=== PATIENT | male | born 1980 | race Hispanic/Latino ===

== ENCOUNTER 2018-03-03 07:39 | Emergency (ER) | payer OTHER ==
[~2018-03-03] VITALS: Ht 165.1 cm; Wt 81.6 kg
[2018-03-03 07:47] VITALS: BP 132/87
--- NOTE | 2018-03-03 08:21 | ED THROAT/DENTAL COMPLAINT ---
History of Present Illness General Chief Complaint: General Adult Stated Complaint: "BUMP INSIDE TOP LIP/ROOF OF MY MOUTH" Source: patient Exam Limitations: no limitations Vital Signs & Intake/Output Vital Signs & Intake/Output Vital Signs Date Time Temp Pulse Resp B/P B/P Pulse O2 O2 Flow FiO2 Mean Ox Delivery Rate 03/03 0747 96.6 80 16 132/87 98 Room Air Allergies Coded Allergies: No Known Allergies (03/03/18) Reconcile Medications Amoxicillin/Clavulanate Potass (Amox-Clav 875-125 MG Tablet) 875 MG-125 MG TABLET 1 TAB PO BID ANTIBIOTIC, INFECTION (Reported) Hydrocodone/Acetaminophen (G[place]t 5-325 Tablet) 5 MG-325 MG TABLET 1-2 TAB PO Q4-6 PRN PRN PAIN Lactobacillus Acidophilus (Probiotic) 10 BILLION CELL CAPSULE 1 CAP PO DAILY GI (Reported) Lidocaine HCl (Lidocaine HCl Viscous) 2 % SOLUTION 15 ML PO 4 TIMES/DAY PRN DENTAL PAIN Triage Note: PT SEEN AT WALK IN CLINIC YESTERDAY AND PRESCRIBED AMOXCILLIN FOR ABCESS TO ROOF OF MOUTH AND UPPER LIP. TOLD TO COME TO ED IF PAIN WORSENED. ARRIVES TO ED FOR INCREASED PAIN/SWELLING TO ABCESS ON UPPER LIP. TOOK DOSE OF AMOXICILLIN THIS AM. AWAKE/ALERT WITH EASY WOB. DENIES DRAINAGE FROM EITHER ABCESS. Triage Nurses Notes Reviewed? yes Onset: Gradual Duration: day(s): (2) Timing: no prior history Injury Environment: home Severity: moderate Severity Numbers: 6 Modifying Factors: Worsens With: movement. HPI: Patient is a 38-year-old male with no past medical history presenting to the emergency department with chief complaint of upper gum and upper lip since yesterday. He was seen at a walk-in clinic and diagnosed with a gum abscess. Who started on Augmentin yesterday evening, patient has taken a total of 3 doses including this morning. Reports that the pain is not controlled with Motrin. He does report that the abscess has increased in size since yesterday as well. No fevers or chills. Otherwise feeling fine. No history of diabetes. Denies any trauma. Past History Travel History Traveled to [place] past 21 day No Medical History Any Pertinent Medical History? see below for history Neurological: NONE EENT: NONE Cardiovascular: NONE Respiratory: NONE Gastrointestinal: NONE Hepatic: NONE Renal: NONE Musculoskeletal: NONE Psychiatric: NONE Endocrine: NONE Surgical History Surgical History: non-contributory Psychosocial History What is your primary language Syriac Tobacco Use: Current Daily Use Daily Tobacco Use Amount/Type: => 5 Cigarettes daily Illicit Drug Use: denies illicit drug use Family History Hx Contributory? No Review of Systems Review of Systems Constitutional: Reports: no symptoms. Comments Review of systems: See HPI, All other systems negative. Constitutional, no chills fever or weight loss HEENT: No visual changes no sore throat no congestion Cardiovascular: No chest pain ,palpitation , orthopnea or ankle swelling Skin, no jaundice Respiratory: No dyspnea cough sputum or hemoptysis GI: No nausea no vomiting : No dysuria No hematuria Muscle skeletal: no back pain, no neck pain, Neurologic: No numbness no confusion, no headaches Psych: No stress anxiety Immunology: No splenectomy or history of AIDS Physical Exam Physical Exam General Appearance: well developed/nourished, no apparent distress, alert, awake , comfortable Mouth/Throat: MILD ERYTHEMA AND EDEMA WITH FLUCTUANCE NOTED TO UPPER GUMLINE, CENTRALLY LOCATED. Comments: Well-developed well-nourished person in no acute distress HEENT: Pupils equally round and reactive to light and accommodation. Nose is atraumatic. Mild edema noted in the upper gumline, centrally located with fluctuance approximately 1 cm in size, tender. No discharge noted. Upper lip is mildly edematous, no abscess identified on the lip. Clearing secretions without difficulty. No airway edema noted. Neck: Normal inspection Respiratory: No respiratory distress. Extremity: No edema Neuro: Alert oriented x3, motor sensory normal Skin: No appreciable rash on exposed skin, skin is warm and dry. Psych: Mood and affect is normal, memory and judgment is normal. Core Measures ACS in differential dx? No Sepsis Present: No Sepsis Focused Exam Completed? No Progress Differential Diagnosis: , ABSCESS, PERITONSILLAR ABSCESS, CELLULITIS, DENTAL INFECTION Plan of Care: Current Medications Sig/Haley Start time Last Medication Dose Stop Time Status Admin Lidocaine 20 ML ONCE ONE 03/03 815 UNVr 03/03 (Lidocaine 1%) 03/03 Departure Departure Time of Disposition: 818 Disposition: HOME OR SELF CARE Condition: Stable Clinical Impression Primary Impression: Dental abscess Referrals: Jaelyn Moran MD (PCP/Family) Additional Instructions: Follow-up with your oral surgeon, call today to make an appointment for the next 3-5 days. Continue Augmentin as per dosage tried. He can take ibuprofen as directed [id number]. For severe pain take Ghent as prescribed. Return for worsening symptoms or concerns. It is also advised that he follow-up with the Hospital the oral surgeon either to is associated with for any worsening symptoms. Departure Forms: Customer Survey General Discharge Information Prescriptions: Current Visit Scripts Lidocaine HCl (Lidocaine HCl Viscous) 15 ML PO 4 TIMES/DAY PRN DENTAL PAIN #100 ML Hydrocodone/Acetaminophen ([place] 5-325 Tablet) 1-2 TAB PO Q4-6 PRN PRN PAIN #10 TAB Procedures Incision and Drainage Site: central upper gum Blade Size: 23 gauge needles aspiration I & D Procedure: No: betadine prep, wick placed. Progress: Area was prepped with hydrogen peroxide. Using a 23-gauge needle approximately 1 mL was aspirated, fluid was cloudy and sanguinous. Patient tolerated procedure well.
[2018-03-03] MEDS ORDERED: PROBIOTIC1 EACH PO (08:25)
[2018-03-03] MEDS ORDERED: AMOX-CLAV 875-1 EACH PO (08:25)
[2018-03-03] MEDS ORDERED: LIDOCAINE HCL V15 ML PO (08:43)
[2018-03-03] MEDS ORDERED: NORCO 5-325 TA1 EACH PO (08:43)
== END 2018-03-03 09:07 ==
LOC: ERH 07:39
DX: K04.7 Periapical abscess without sinus (principal)